=== PATIENT | male | born 1960 | race Caucasian/White ===

== ENCOUNTER 2025-05-05 10:08 | Outpatient (CLI) | payer BC, SELFPAY | END 2025-05-05 10:09 | disposition home or self-care (01) | LOC: WOUND 10:12 | PROVIDERS: PCP Student in an Organized Health Care Education/Training Program; Visit Provider Nurse Practitioner Family | DX: I87.313 Chronic venous hypertension (idiopathic) with ulcer of bilateral lower extremity (principal); L97.812 Non-pressure chronic ulcer of other part of right lower leg with fat layer exposed; I10 Essential (primary) hypertension | CPT/HCPCS: 11042; G0463 ==

== ENCOUNTER 2025-05-12 15:03 | Outpatient (CLI) | payer BC, SELFPAY | END 2025-05-12 15:04 | disposition home or self-care (01) | LOC: WOUND 15:03 | PROVIDERS: PCP Student in an Organized Health Care Education/Training Program; Visit Provider Nurse Practitioner Family | DX: I87.313 Chronic venous hypertension (idiopathic) with ulcer of bilateral lower extremity (principal); L97.812 Non-pressure chronic ulcer of other part of right lower leg with fat layer exposed; I10 Essential (primary) hypertension | CPT/HCPCS: 11042 ==

== ENCOUNTER 2025-05-19 13:51 | Outpatient (CLI) | payer BC, SELFPAY | END 2025-05-19 13:52 | disposition home or self-care (01) | LOC: WOUND 13:52 | PROVIDERS: PCP Student in an Organized Health Care Education/Training Program; Visit Provider Nurse Practitioner Family | DX: I87.313 Chronic venous hypertension (idiopathic) with ulcer of bilateral lower extremity (principal); L97.812 Non-pressure chronic ulcer of other part of right lower leg with fat layer exposed; I10 Essential (primary) hypertension | CPT/HCPCS: 11042 ==

== ENCOUNTER 2025-05-26 15:04 | Outpatient (CLI) | payer BC, SELFPAY | END 2025-05-26 15:05 | disposition home or self-care (01) | LOC: WOUND 15:04 | PROVIDERS: PCP Student in an Organized Health Care Education/Training Program; Visit Provider Nurse Practitioner Family | DX: I87.311 Chronic venous hypertension (idiopathic) with ulcer of right lower extremity (principal); L97.812 Non-pressure chronic ulcer of other part of right lower leg with fat layer exposed; I10 Essential (primary) hypertension | CPT/HCPCS: 11042 ==

== ENCOUNTER 2025-06-02 15:02 | Outpatient (CLI) | payer BC, SELFPAY | END 2025-06-02 15:03 | disposition home or self-care (01) | LOC: WOUND 15:03 | PROVIDERS: PCP Student in an Organized Health Care Education/Training Program; Visit Provider Nurse Practitioner Family | DX: I87.311 Chronic venous hypertension (idiopathic) with ulcer of right lower extremity (principal); L97.812 Non-pressure chronic ulcer of other part of right lower leg with fat layer exposed; I10 Essential (primary) hypertension | CPT/HCPCS: 11042 ==

== ENCOUNTER 2025-06-12 13:05 | Outpatient (CLI) | payer BC, SELFPAY | END 2025-06-12 13:06 | disposition home or self-care (01) | LOC: WOUND 13:05 | PROVIDERS: PCP Student in an Organized Health Care Education/Training Program; Visit Provider Nurse Practitioner Family | DX: I87.311 Chronic venous hypertension (idiopathic) with ulcer of right lower extremity (principal); I10 Essential (primary) hypertension; L97.812 Non-pressure chronic ulcer of other part of right lower leg with fat layer exposed | CPT/HCPCS: 11042 ==

== ENCOUNTER 2025-06-16 13:53 | Outpatient (CLI) | payer BC, SELFPAY | END 2025-06-16 13:54 | disposition home or self-care (01) | LOC: WOUND 13:53 | PROVIDERS: PCP Student in an Organized Health Care Education/Training Program; Visit Provider Nurse Practitioner Family | DX: I87.311 Chronic venous hypertension (idiopathic) with ulcer of right lower extremity (principal); I10 Essential (primary) hypertension; L97.812 Non-pressure chronic ulcer of other part of right lower leg with fat layer exposed | CPT/HCPCS: 11042 ==

== ENCOUNTER 2025-06-23 13:51 | Outpatient (CLI) | payer BC, SELFPAY | END 2025-06-23 13:52 | disposition home or self-care (01) | LOC: WOUND 13:51 | PROVIDERS: PCP Student in an Organized Health Care Education/Training Program; Visit Provider Nurse Practitioner Family | DX: I87.311 Chronic venous hypertension (idiopathic) with ulcer of right lower extremity (principal); L97.812 Non-pressure chronic ulcer of other part of right lower leg with fat layer exposed | CPT/HCPCS: 11042 ==

== ENCOUNTER 2025-06-30 13:53 | Outpatient (CLI) | payer BC, SELFPAY | END 2025-06-30 13:54 | disposition home or self-care (01) | LOC: WOUND 13:53 | PROVIDERS: PCP Student in an Organized Health Care Education/Training Program; Visit Provider Nurse Practitioner Family | DX: I87.311 Chronic venous hypertension (idiopathic) with ulcer of right lower extremity (principal); I10 Essential (primary) hypertension; L97.812 Non-pressure chronic ulcer of other part of right lower leg with fat layer exposed | CPT/HCPCS: 11042 ==